=== PATIENT | male | born 1960 | race African-American/Black ===

== ENCOUNTER → 2016-07-30 | Outpatient (CLI) | payer OTHER ==
[~2016-07-30] MED LIST: DOCU-144 PO; ESCI10TA PO; FLUT16SP24 NS; OMEP20CA9 PO; RISP0.5T21 PO; SILD100T51 PO; TRAM50TA2 PO; TRIA1CAP44 PO; [UNRECOGNIZED DRUG - CODE] PO
--- NOTE | 2016-07-30 16:32 | RADRPT ---
PROCEDURE: XR left knee. CLINICAL INDICATION: Knee pain TECHNIQUE: AP weightbearing, PA weightbearing, lateral weightbearing and sunrise views are availab le for review. COMPARISON: None available FINDINGS: There is calcific enthesopathy involving the anterior superior aspect of the patella. There is mild osteoarthrosis involving the patellofemoral compartment. This is associated with minimal osteophytos is. The osseous structures are otherwise normal in mineralization, architecture and alignment. No fract ures are identified. No osseous lesions are identified. The soft tissues are unremarkable. 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 Mild osteoarthrosis involving the patellofemoral compartment. RPTAT: [facility] .Melvin Hale MD, MD Date Time Electronically viewed and signed by .Melvin Hale MD, on 07/30/2016 16:32 .B/
== END | disposition home or self-care (01) ==
LOC: HKI 13:41
PROVIDERS: ATTEND Orthopaedic Surgery
DX: M17.12 Unilateral primary osteoarthritis, left knee (principal); M25.562 Pain in left knee
CPT/HCPCS: 73564; Z7500; G0463

== ENCOUNTER → 2017-06-27 | Outpatient (CLI) | END | disposition home or self-care (01) ==

== ENCOUNTER → 2017-07-08 | Outpatient (CLI) | END | disposition home or self-care (01) ==